=== PATIENT | female | born 1990 | race Caucasian/White ===

== ENCOUNTER 2016-12-19 16:50 | Emergency (ER) | payer MEDICAID ==
[2016-12-19] MEDS ORDERED: NS 1,000 ML IV ONE ×2 (17:10)
[2016-12-19] MEDS ORDERED: ONDANSETRON 4 MG/2 ML VIAL IVP ONE (17:10)
[2016-12-19 17:23] LABS: % IMMATURE GRANULYOCYTES 0.2 % (0.0-1.1); ABSOLUTE IMMATURE GRANULOCYTES 0.02 10^3/uL (0.00-0.10); ADD DIFF? NO; ADD MORPH? NO; ADD SCAN? NO; ATYPICAL LYMPHOCYTE FLAG 20 (0-99); FRAGMENT RBC FLAG 0 (0-99); HEMATOCRIT 40.7 % (38.0-47.0); HEMOGLOBIN 14.7 g/dL (12.6-16.3); LEFT SHIFT FLG 0 (0-99); LIPEMIA HEMOLYSIS FLAG 90 (0-99); MEAN CELL HEMOGLOBIN 29.5 pg (27.9-34.1); MEAN CELL HEMOGLOBIN CONCENTR. 36.1 g/dL (32.4-36.7); MEAN CELL VOLUME 81.6 fL (81.5-99.8); MEAN PLATELET VOLUME 9.6 fL (8.7-11.7); PLATELET CLUMPS FLAG 10 (0-99); PLATELET COUNT 406 10^3/uL (150-400); RED BLOOD CELL COUNT 4.99 10^6/uL (4.18-5.33); RED CELL DISTRIBUTION WIDTH 11.8 % (11.5-15.2)
[2016-12-19 17:38] LABS: ALANINE AMINOTRANSFERASE 41 IU/L (9-52); ALBUMIN 4.4 g/dL (3.5-5.0); ALKALINE PHOSPHATASE 106 IU/L (38-126); ANION GAP 15 mEq/L (8-16); ASPARTATE AMINOTRANSFERASE 26 IU/L (14-46); BILIRUBIN,TOTAL 0.8 mg/dL (0.1-1.4); BILIRUBIN-CONJUGATED 0.4 mg/dL (0.0-0.5); BILIRUBIN-UNCONJUGATED 0.4 mg/dL (0.0-1.1); CALCIUM 9.6 mg/dL (8.5-10.4); CARBON DIOXIDE 28 mEq/l (22-31); CHLORIDE 93 mEq/L (97-110); CREATININE 0.6 mg/dL (0.6-1.0); GLOMERULAR FILTRATION RATE > 60; GLUCOSE 359 mg/dL (70-100); POTASSIUM 3.7 mEq/L (3.5-5.2); SODIUM 136 mEq/L (134-144)
[2016-12-19] MEDS ORDERED: HALOPERIDOL LACT 5 MG/ML INJ IVP ONE (17:50)
[2016-12-19] MEDS ORDERED: LORazepam 2 MG/ML INJ IVP ONE (17:50)
--- NOTE | 2016-12-19 17:53 | EDPHY ---
H & P Stated Complaint: n/v diabetic with gastroparesis/abd pain Time Seen by Provider: 12/19/16 17:10 HPI/ROS: CHIEF COMPLAINT: Acute exacerbation of chronic abdominal pain HISTORY OF PRESENT ILLNESS: The patient presents to the ED with complaints of acute nausea and vomiting. The patient reportedly has a history of chronic abdominal pain from gastroparesis. The patient reports that her blood sugars have been fairly well controlled over the past week. The patient states this is a fairly typical exacerbation of her chronic abdominal pain. It is moderate to severe in nature and not focally localized. The patient denies any dysuria. She has not had diarrhea. She denies recent antibiotic use. REVIEW OF SYSTEMS: A comprehensive 10 point review of systems is otherwise negative aside from elements mentioned in the history of present illness. Source: Patient Exam Limitations: No limitations - Personal History LMP (Females 10-55): Irregular Current Tetanus/Diphtheria Vaccine: Yes Tetanus Vaccine Date: 11/26 - Medical/Surgical History Hx Asthma: No Hx Chronic Respiratory Disease: No Hx Diabetes: Yes Hx Cardiac Disease: No Hx Renal Disease: No Hx Cirrhosis: No Hx Alcoholism: No Hx HIV/AIDS: No Hx Splenectomy or Spleen Trauma: No Other PMH: heroin addiction/IV drug use/ DM. GASTROPARESIS - Social History Smoking Status: Current every day smoker Alcohol Use: None Drug Use: None - Physical Exam Exam: General Appearance: Alert, mild discomfort from nausea Eyes: Pupils equal and round no pallor or injection ENT, Mouth: Mucous membranes moist Respiratory: There are no retractions, lungs are clear to auscultation Cardiovascular: Regular rate and rhythm Gastrointestinal: Minimal diffuse abdominal tenderness, no peritoneal signs Neurological: A&O, normal motor function, normal sensory exam, normal cranial nerves Skin: Warm and dry, no rashes Musculoskeletal: Neck is supple nontender Extremities: symmetrical, full range of motion Constitutional: Initial Vital Signs Temperature (C) 37 C 12/19/16 16:53 Heart Rate 64 12/19/16 16:53 Respiratory Rate 18 12/19/16 16:53 Blood Pressure 144/96 H 12/19/16 16:53 O2 Sat (%) 99 12/19/16 16:53 O2 Delivery Mode Room Air O2 (L/minute) 2 Allergies/Adverse Reactions: No Known Allergies Allergy (Verified 12/19/16 16:51) Home Medications: Medication Instructions Recorded Insulin Glargine [Lantus 100 35 units SC DAILY 07/27/13 UNITS/ML (RX)] Insulin Lispro [Humalog] 0 - 10 unit SQ AC 07/27/13 Methadone HCl [Methadone HCl 10 mg 65 mg PO DAILY 07/27/13 (RX)] Medical Decision Making ED Course/Re-evaluation: The patient had an IV established. The patient received 4 mg of Zofran and 2 L of normal saline. The patient was reassessed at 5:50 p.m.: She continues to have ongoing symptoms. She is given IV Ativan, Haldol and Benadryl. I reviewed the patient's past medical records. The patient does have mild hyperglycemia without evidence of diabetic ketoacidosis. The patient was reexamined multiple times by myself. 7:00 p.m.: Patient is re-evaluated sleeping in the room no acute distress, abdominal examination benign. The patient would like to be discharged home. She will contact her brother who will pick her up. The patient is discharged home with customary aftercare instructions. Differential Diagnosis: Differential diagnosis considered includes diabetic ketoacidosis, dehydration, metabolic abnormality, renal failure, chronic abdominal pain, gastroparesis - Data Points Laboratory Results: Laboratory Results 12/19/16 17:15 12/19/16 17:15 12/19/16 17:15 WBC 8.91 10^3/uL (3.80-9.50) RBC 4.99 10^6/uL (4.18-5.33) Hgb 14.7 g/dL (12.6-16.3) Hct 40.7 % (38.0-47.0) MCV 81.6 fL (81.5-99.8) MCH 29.5 pg (27.9-34.1) MCHC 36.1 g/dL (32.4-36.7) RDW 11.8 % (11.5-15.2) Plt Count 406 H 10^3/uL (150-400) MPV 9.6 fL (8.7-11.7) Neut % (Auto) 58.8 % (39.3-74.2) Lymph % (Auto) 31.2 % (15.0-45.0) [place] % (Auto) 8.0 % (4.5-13.0) Eos % (Auto) 1.2 % (0.6-7.6) Baso % (Auto) 0.6 % (0.3-1.7) Nucleat RBC Rel Count 0.0 % (0.0-0.2) Absolute Neuts (auto) 5.24 10^3/uL (1.70-6.50) Absolute Lymphs (auto) 2.78 10^3/uL (1.00-3.00) Absolute Monos (auto) 0.71 10^3/uL (0.30-0.80) Absolute Eos (auto) 0.11 10^3/uL (0.03-0.40) Absolute Basos (auto) 0.05 10^3/uL (0.02-0.10) Absolute Nucleated RBC 0.00 10^3/uL (0-0.01) Immature Gran % 0.2 % (0.0-1.1) Immature Gran # 0.02 10^3/uL (0.00-0.10) Sodium 136 mEq/L (134-144) Potassium 3.7 mEq/L (3.5-5.2) Chloride 93 L mEq/L (97-110) Carbon Dioxide 28 mEq/l (22-31) Anion Gap 15 mEq/L (8-16) BUN 9 mg/dL (7-23) Creatinine 0.6 mg/dL (0.6-1.0) Estimated GFR > 60 Glucose 359 H mg/dL (70-100) Calcium 9.6 mg/dL (8.5-10.4) Total Bilirubin 0.8 mg/dL (0.1-1.4) Conjugated Bilirubin 0.4 mg/dL (0.0-0.5) Unconjugated Bilirubin 0.4 mg/dL (0.0-1.1) AST 26 IU/L (14-46) ALT 41 IU/L (9-52) Alkaline Phosphatase 106 IU/L (38-126) Total Protein 8.0 g/dL (6.3-8.2) Albumin 4.4 g/dL (3.5-5.0) Lipase 64.0 IU/L (23-300) Beta HCG, Qual NEGATIVE Medications Given: Discontinued Medications Diphenhydramine HCl (Benadryl Injection) 50 mg IVP EDNOW ONE Stop: 12/19/16 17:51 Last Admin: 12/19/16 18:00 Dose: 50 mg Haloperidol Lactate (Haldol Injection) 5 mg IVP EDNOW ONE Stop: 12/19/16 17:51 Last Admin: 12/19/16 18:00 Dose: 5 mg Sodium Chloride (Ns) 1,000 mls @ 0 mls/hr IV ONCE ONE PRN Reason: Wide Open Stop: 12/19/16 17:11 Last Admin: 12/19/16 18:42 Dose: 1,000 mls Sodium Chloride (Ns) 1,000 mls @ 0 mls/hr IV ONCE ONE PRN Reason: Wide Open Stop: 12/19/16 17:11 Last Admin: 12/19/16 17:34 Dose: 1,000 mls Lorazepam (Ativan Injection) 1 mg IVP EDNOW ONE Stop: 12/19/16 17:51 Last Admin: 12/19/16 18:00 Dose: 1 mg Ondansetron HCl (Zofran) 4 mg IVP EDNOW ONE Stop: 12/19/16 17:11 Last Admin: 12/19/16 17:34 Dose: 4 mg Departure - Departure Disposition: Home, Routine, Self-Care Clinical Impression: Vomiting, Acute abdominal pain, Hyperglycemia Condition: Good Instructions: Acute Abdominal Pain (ED) Additional Instructions: 1. Please return to the emergency department for worsening abdominal pain, vomiting, persistently elevated blood sugars or other. 2. Please follow up with your primary care provider as needed.
[2016-12-19 20:24] VITALS: BP 99/70; PULSE 78; RESP 16; TEMP 98.4; O2SAT 96
== END 2016-12-19 20:23 | disposition home or self-care (01) ==
DX: R10.0 Acute abdomen (principal); E11.65 Type 2 diabetes mellitus with hyperglycemia; F17.200 Nicotine dependence, unspecified, uncomplicated; Z79.4 Long term (current) use of insulin
CPT/HCPCS: 96374; J1200; J2405